=== PATIENT | female | born 1970 | race Two or more races ===

== ENCOUNTER 2022-03-28 11:30 | Inpatient (IN) | payer OTHER ==
[~2022-03-28] VITALS: Ht 152.4 cm; Wt 62.6 kg
[2022-03-28] MEDS ORDERED: KEPPRA750 MG PO (13:05)
[2022-03-28] MEDS ORDERED: NORVASC10 MG PO (13:06)
[2022-03-28] MEDS ORDERED: CLONAZEPAM1 MG PO (13:06)
[2022-03-28] MEDS ORDERED: ADULT LOW DOSE81 M1 PO (13:06)
[2022-03-28] MEDS ORDERED: LAMICTAL150 MG PO (13:06)
[2022-03-28] MEDS ORDERED: FOLIC ACID0.8 M1 PO (13:07)
[2022-03-28] MEDS ORDERED: LIPITOR40 MG PO (13:07)
[2022-03-28] MEDS ORDERED: LEXAPRO5 MG PO (13:07)
[2022-03-30] MEDS ORDERED: ESCITALOPRAM OX10 MG (07:54)
[2022-03-30] MEDS ORDERED: FAMOTIDINE20 MG (07:55)
[2022-03-30] MEDS ORDERED: CLOTRIMAZOLE-BE15 G1 (07:55)
[2022-03-30] MEDS ORDERED: TERCONAZOLE45 GM (07:55)
[2022-03-30] MEDS ORDERED: DEXAMETHASONE4 MG (07:55)
[2022-03-30] MEDS ORDERED: ENALAPRIL MALEA10 MG (07:55)
[2022-03-30] MEDS ORDERED: TOPIRAMATE25 MG (07:55)
[2022-03-30] MEDS ORDERED: MONTELUKAST SOD10 MG (07:55)
[2022-03-30] MEDS ORDERED: CYANOCOBAL1000 MCG/1 (07:56)
[2022-03-30] MEDS ORDERED: TRAZODONE HCL100 MG (07:56)
[2022-03-30] MEDS ORDERED: SERTRALINE HCL50 MG (07:56)
== END 2022-04-02 12:15 | disposition home or self-care (01) | DRG 743 ==
LOC: O/R 03-30 05:40 → OB/GYN 03-30 07:00
PROVIDERS: ADMIT Specialist; ATTEND Specialist
PROC: 0UT70ZZ Resection of Bilateral Fallopian Tubes, Open Approach (ICD-10-PCS; 2022-03-30)
PROC: 0UT20ZZ Resection of Bilateral Ovaries, Open Approach (ICD-10-PCS; 2022-03-30)
PROC: 0UB90ZZ Excision of Uterus, Open Approach (ICD-10-PCS; 2022-03-30)
PROC: 0UT90ZZ Resection of Uterus, Open Approach (ICD-10-PCS; principal; 2022-03-30 07:00)
DX: D25.1 Intramural leiomyoma of uterus (principal); Z20.822 Contact with and (suspected) exposure to COVID-19; N83.11 Corpus luteum cyst of right ovary; N83.291 Other ovarian cyst, right side; N83.292 Other ovarian cyst, left side